=== PATIENT | female | born 1950 | race Caucasian/White ===

== ENCOUNTER 2017-01-10 19:42 | Emergency (ER) | payer MEDICARE, OTHER ==
[2017-01-10 21:06] LABS: Hematocrit 42 % (35-47); Mean Corpuscular HGB Conc 33 g/dl (31-36); Mean Corpuscular Hemoglobin 30 pg (27-31); Mean Corpuscular Volume 91 fL (80-97); Mean Platelet Volume 9 um3 (7.4-10.4); Red Blood Count 4.63 10^6/ul (4.0-5.4); Red Cell Distribution Width 13 % (10.5-15); White Blood Count 6.8 10^3/ul (3.5-10.8)
[2017-01-10 21:17] LABS: Albumin 4.1 g/dL (3.2-5.2); BUN/Creatinine Ratio 23.9 (8-20); Calcium 9.8 mg/dL (8.6-10.3); EGFR African American 82.2 (>60); EGFR Non-African American 63.9 (>60); Globulin 2.9 g/dL (2-4); Total Bilirubin 0.8 mg/dL (0.2-1.0)
[2017-01-10 21:42] LABS: Urine Bilirubin Negative (Negative); Urine Glucose Negative (Negative); Urine Nitrite Negative (Negative)
--- NOTE | 2017-01-10 21:43 | ED ---
David Romo Anna, scribed for Dilan Dotson MD on 01/10/17 at 2028 . Complex/Multi-Sys Presentation - HPI Summary HPI Summary: Patient is a 66 y/o female coming to [facility] presenting with pain that began this evening. Her nurses reported the patient had been expressing that something hurt and had been crying, which is not baseline for her. She was not able to express what was hurting. They called her PCP, Dr. Vargas, who recommended the patient came to the ED. Her BP was 131/100. Upon arrival at the ED, she is at her baseline, according to her brother. At dinner today, she was teary-eyed, crying, and did not finish her dinner. She has not been constipated, and she takes a laxative normally. LEVEL 5 CAVEAT UNABLE TO OBTAIN FULL HISTORY DUE TO HISTORY OF DEMENTIA. - History Of Current Complaint Chief Complaint: EDGeneral Time Seen by Provider: 01/10/17 20:19 Hx Obtained From: Family/Director Of Application Development - Accompanied by brother, who brings verbal reports from the patient's nurses at her care facility Hx From Patient Unobtainable Due To: Dementia - Allergies/Home Medications Allergies/Adverse Reactions: Allergies Allergy/AdvReac Type Severity Reaction Status Date / Time Escitalopram [From Lexapro] Allergy unk Verified 12/15/15 14:58 Memantine [From Namenda] Allergy unk Verified 12/15/15 14:58 Rivastigmine [From Exelon] Allergy unk Verified 12/15/15 14:58 Sulfa Antibiotics Allergy unk Verified 12/15/15 14:58 leaf mold Allergy Unknown Uncoded 12/15/15 14:58 Reaction Details PMH/Surg Hx/FS Hx/Imm Hx Cardiovascular History: Reports: Hx Hypercholesterolemia Respiratory History: Reports: Hx Asthma GI History: Reports: Other GI Disorders - colonic polyps History: Reports: Other Problems/Disorders - ureteral diverticulum Musculoskeletal History: Reports: Hx Osteoporosis, Other Musculoskeletal History - tremor Sensory History: Reports: Hx Glaucoma, Hx Deafness - right ear, stapedectomy x2 , Other Sensory Impairments - episodic diplopia Opthamlomology History: Reports: Hx Glaucoma, Other Sensory Impairments - episodic diplopia Neurological History: Reports: Hx Dementia, Other Neuro Impairments/Disorders - history of head trauma Psychiatric History: Reports: Hx Anxiety, Hx Depression - Cancer History Hx Chemotherapy: No Hx Radiation Therapy: No - Surgical History Surgery Procedure, Year, and Place: stapedectomy right ear x2 with associated hearing loss Infectious Disease History: No Infectious Disease History: Denies: Traveled Outside the [place] in Last 30 Days - Family History Known Family History: Positive: Other - hypercholesterolemia - Social History [facility]: [facility] Alcohol Use: None Hx Substance Use: No Substance Use Type: Reports: None Smoking Status (MU): Unknown if Ever Smoked Review of Systems - ROS Summary Review of Systems Summary: LEVEL 5 CAVEAT UNABLE TO OBTAIN FULL HISTORY DUE TO HISTORY OF DEMENTIA Positive: Myalgia - unspecified, resolved Psychological: Other - crying, resolved All Other Systems Reviewed And Are Negative: No Physical Exam Triage Information Reviewed: Yes Vital Signs On Initial Exam: Initial Vitals Temp Pulse Resp BP Pulse Ox 98.3 F 80 16 153/87 97 01/10/17 20:01 01/10/17 20:01 01/10/17 20:01 01/10/17 20:01 01/10/17 20:01 Vital Signs Reviewed: Yes Completion Of Physical Exam Limited Due To: Dementia Appearance: Positive: No Pain Distress, Thin Skin: Positive: Warm Eyes: Positive: RUBY ENT: Positive: Hearing grossly normal Neck: Positive: Supple Respiratory/Lung Sounds: Positive: Breath Sounds Present Cardiovascular: Positive: RRR Abdomen Description: Positive: Nontender, Soft Bowel Sounds: Positive: Present Musculoskeletal: Positive: Strength/ROM Intact Diagnostics - Vital Signs Vital Signs Temp Pulse Resp BP Pulse Ox 01/10/17 20:01 98.3 F 80 16 153/87 97 - Laboratory Lab Results: Lab Results 01/10/17 01/10/17 01/10/17 Range/Units 20:24 20:40 21:34 WBC 6.8 (3.5-10.8) 10^3/ul RBC 4.63 (4.0-5.4) 10^6/ul Hgb 14.0 (12.0-16.0) g/dl Hct 42 (35-47) % MCV 91 (80-97) fL MCH 30 (27-31) pg MCHC 33 (31-36) g/dl RDW 13 (10.5-15) % Plt Count 232 (150-450) 10^3/ul MPV 9 (7.4-10.4) um3 Neut % (Auto) 45.8 (38-83) % Lymph % (Auto) 37.2 (25-47) % [place] % (Auto) 11.8 H (1-9) % Eos % (Auto) 4.3 (0-6) % Baso % (Auto) 0.9 (0-2) % Absolute Neuts (auto) 3.1 (1.5-7.7) 10^3/ul Absolute Lymphs (auto) 2.5 (1.0-4.8) 10^3/ul Absolute Monos (auto) 0.8 (0-0.8) 10^3/ul Absolute Eos (auto) 0.3 (0-0.6) 10^3/ul Absolute Basos (auto) 0.1 (0-0.2) 10^3/ul Absolute Nucleated RBC 0.01 10^3/ul Nucleated RBC % 0.1 Sodium 133 (133-145) mmol/L Potassium 4.0 (3.5-5.0) mmol/L Chloride 103 (101-111) mmol/L Carbon Dioxide 24 (22-32) mmol/L Anion Gap 6 (2-11) mmol/L BUN 21 (6-24) mg/dL Creatinine 0.88 (0.51-0.95) mg/dL Est GFR ( Amer) 82.2 (>60) Est GFR (Non-Af Amer) 63.9 (>60) BUN/Creatinine Ratio 23.9 H (8-20) Glucose 108 H (70-100) mg/dL Calcium 9.8 (8.6-10.3) mg/dL Total Bilirubin 0.80 (0.2-1.0) mg/dL AST 14 (13-39) U/L ALT 17 (7-52) U/L Alkaline Phosphatase 42 (34-104) U/L Total Protein 7.0 (6.4-8.9) g/dL Albumin 4.1 (3.2-5.2) g/dL Globulin 2.9 (2-4) g/dL Albumin/Globulin Ratio 1.4 (1-3) Urine Color Yellow Urine Appearance Clear Urine pH 5.0 (5-9) Ur Specific [place] 1.027 (1.010-1.030) Urine Protein Negative (Negative) Urine Ketones Negative (Negative) Urine Blood Negative (Negative) Urine Nitrate Negative (Negative) Urine Bilirubin Negative (Negative) Urine Urobilinogen Negative (Negative) Ur Leukocyte Esterase Negative (Negative) Urine Glucose Negative (Negative) Urine Ascorbic Acid * H (Negative) Result Diagrams: 01/10/17 20:40 01/10/17 20:24 Lab Statement: Any lab studies that have been ordered have been reviewed, and results considered in the medical decision making process. Re-Evaluation - Re-Evaluation First Eval Re-Evaluation Time: 21:45 Change: Improved - Patient has not cried or expressed pain since arrival in ED. She is at her baseline, per her brother. Discussed results and plan of care. Patient's brother is agreeable. Complex Multi-Symp Course/Dx Assessment/Plan: Patient is a 66 y/o female coming to [facility] presenting with pain that began this evening. Her nurses reported the patient had been expressing that something hurt and had been crying, which is not baseline for her. She was not able to express what was hurting. They called her PCP, Dr. Vargas, who recommended the patient came to the ED. Labs reveal a BUN/ Creatinine ratio of 23.9 but are otherwise unremarkable. UA is unremarkable. She will be discharged home with follow-up from her PCP. - Diagnoses Provider Diagnoses: pain, resolved Discharge - Discharge Plan Condition: Stable Disposition: HOME Referrals: Temi Vargas MD [Primary Care Provider] - Additional Instructions: Follow up with primary care physician within 48 hours. Return to the emergency department for changing or worsening symptoms. The documentation as recorded by the David nunn Anna accurately reflects the service I personally performed and the decisions made by , Dilan Dotson MD.
[2017-01-10 21:55] VITALS: BP 106/87
== END 2017-01-10 21:58 | disposition home or self-care (01) ==
LOC: ED 19:42
DX: R52 Pain, unspecified (principal); F03.90 Unspecified dementia, unspecified severity, without behavioral disturbance, psychotic disturbance, mood disturbance, and anxiety
CPT/HCPCS: 36415; 80053; 81003; 85025; 99282

== ENCOUNTER 2017-06-09 12:54 | Inpatient (IN) | payer MEDICARE, OTHER ==
[2017-06-09 13:37] LABS: Urine Bacteria 3+ (Absent); Urine Bilirubin Negative (Negative); Urine Glucose Negative (Negative); Urine Nitrite Positive (Negative)
--- NOTE | 2017-06-09 13:39 | RAD ---
Indication: Shortness of breath, confusion. Single frontal view of the chest performed at 1324 hours was reviewed. Comparison is made with previous exam dated April 09, 2012. No mediastinal shift is noted. Heart is of normal size and configuration. Lung marshall appear clear. IMPRESSION: NO ACTIVE CARDIOPULMONARY DISEASE IS NOTED.
[2017-06-09 13:45] LABS: Hematocrit 42 % (35-47); Hemoglobin 13.8 g/dl (12.0-16.0); Mean Corpuscular HGB Conc 33 g/dl (31-36); Mean Corpuscular Hemoglobin 31 pg (27-31); Mean Corpuscular Volume 93 fL (80-97); Mean Platelet Volume 9 um3 (7.4-10.4); Red Blood Count 4.46 10^6/ul (4.0-5.4); Red Cell Distribution Width 13 % (10.5-15); White Blood Count 5.8 10^3/ul (3.5-10.8)
--- NOTE | 2017-06-09 13:57 | RAD ---
Indication: Confusion. CT of the brain was performed without IV contrast. Ventricular structures are midline. No midline shift is noted. There is central and cortical atrophy noted. There is no evidence of intracranial mass or hemorrhage. No other high or low density lesions are identified. Mastoid air cells and paranasal sinuses are otherwise unremarkable. IMPRESSION: No intracranial mass or hemorrhage is noted.
[2017-06-09 14:08] LABS: Albumin 4.1 g/dL (3.2-5.2); BUN/Creatinine Ratio 22.7 (8-20); Calcium 9.6 mg/dL (8.6-10.3); EGFR African American 98.8 (>60); EGFR Non-African American 76.8 (>60); Globulin 2.8 g/dL (2-4); Magnesium 2.2 mg/dL (1.9-2.7); Potassium 4.4 mmol/L (3.5-5.0); Total Bilirubin 1.2 mg/dL (0.2-1.0); Total Protein 6.9 g/dL (6.4-8.9)
[2017-06-09] MEDS ORDERED: cefTRIAXone(*) 1 GM in NS 0.9% 50 ML* 50 ML IVPB ONE (14:22)
--- NOTE | 2017-06-09 14:25 | ED ---
Be Romo Benjamin, scribed for Rosa Isela Varma MD on 06/09/17 at 1316 . Complex/Multi-Sys Presentation - HPI Summary HPI Summary: 66yo female c/o halfway sent by Dr. Vargas, her PCP to rule out any actue medical problems. Per her video game repair technician nurse, pt has been shaky, pale, and has a rigid upper body. Pt fell twice, once this morning and once last night. LEVEL 5 CAVEAT - Pt is aphasic. - History Of Current Complaint Chief Complaint: EDGeneral Time Seen by Provider: 06/09/17 12:59 Hx Obtained From: Family/Jewel Bearing Grinder Onset/Duration: Sudden Onset, Lasting Hours, Still Present Timing: Constant Severity Currently: Mild Severity Initially: Mild Associated Signs And Symptoms: Positive: Weakness, Other - shaky, pale, rigid body - Allergies/Home Medications Allergies/Adverse Reactions: Allergies Allergy/AdvReac Type Severity Reaction Status Date / Time Escitalopram [From Lexapro] Allergy unk Verified 12/15/15 14:58 Memantine [From Namenda] Allergy unk Verified 12/15/15 14:58 Rivastigmine [From Exelon] Allergy unk Verified 12/15/15 14:58 Sulfa Antibiotics Allergy unk Verified 12/15/15 14:58 leaf mold Allergy Unknown Uncoded 12/15/15 14:58 Reaction Details Home Medications: Home Medications Acetaminophen TAB* [Tylenol TAB*] 650 mg PO Q4H PRN 06/09/17 [History Confirmed 06/09/17] Fexofenadine (NF) [Malia 180 (NF)] 180 mg PO BEDTIME 06/09/17 [History Confirmed 06/09/17] Ondansetron ODT TAB* [Zofran 4 MG Odt TAB*] 4 mg PO Q8H PRN 06/09/17 [History Confirmed 06/09/17] PARoxetine HCL TAB* [Paxil TAB*] 20 mg PO BEDTIME 06/09/17 [History Confirmed ] Polyethylene Glycol 3350* [Miralax*] 17 gm PO DAILY 06/09/17 [History Confirmed 06/09/17] guaiFENesin LIQ* [Robitussin*] 10 ml PO Q4H PRN 06/09/17 [History Confirmed 12/25] PMH/Surg Hx/FS Hx/Imm Hx Cardiovascular History: Reports: Hx Hypercholesterolemia Respiratory History: Reports: Hx Asthma GI History: Reports: Other GI Disorders - colonic polyps History: Reports: Other Problems/Disorders - ureteral diverticulum Musculoskeletal History: Reports: Hx Osteoporosis, Other Musculoskeletal History - tremor Sensory History: Reports: Hx Glaucoma, Hx Deafness - right ear, stapedectomy x2 , Other Sensory Impairments - episodic diplopia Opthamlomology History: Reports: Hx Glaucoma, Other Sensory Impairments - episodic diplopia Neurological History: Reports: Hx Dementia, Other Neuro Impairments/Disorders - history of head trauma; Aphasia Psychiatric History: Reports: Hx Anxiety, Hx Depression - Cancer History Hx Chemotherapy: No Hx Radiation Therapy: No - Surgical History Surgery Procedure, Year, and Place: stapedectomy right ear x2 with associated hearing loss Infectious Disease History: No Infectious Disease History: Denies: Traveled Outside the [place] in Last 30 Days - Family History Known Family History: Positive: Other - hypercholesterolemia - Social History Occupation: Disabled Lives: At [facility] Alcohol Use: None Hx Substance Use: No Substance Use Type: Reports: None Smoking Status (MU): Unknown if Ever Smoked Review of Systems - ROS Summary Review of Systems Summary: LEVEL 5 CAVEAT - Pt is aphasic. Positive: Other - shaking Positive: Other - pale All Other Systems Reviewed And Are Negative: No Physical Exam Triage Information Reviewed: Yes Vital Signs On Initial Exam: Initial Vitals Temp Pulse Resp BP Pulse Ox 98.6 F 82 20 153/111 98 06/09/17 13:00 06/09/17 13:00 06/09/17 13:00 06/09/17 13:00 06/09/17 13:00 Vital Signs Reviewed: Yes Completion Of Physical Exam Limited Due To: Level 5 - LEVEL 5 CAVEAT - Pt is aphasic. Appearance: Positive: No Pain Distress, Obese. Negative: Well-Appearing - LEVEL 5 CAVEAT - Pt is aphasic. Skin: Positive: Warm, Skin Color Reflects Adequate Perfusion, Dry Head/Face: Positive: Normal Head/Face Inspection Eyes: Positive: EOMI, RUBY ENT: Positive: Normal ENT inspection Neck: Positive: Supple, Nontender Respiratory/Lung Sounds: Positive: Clear to Auscultation, Breath Sounds Present Cardiovascular: Positive: RRR Abdomen Description: Positive: Soft Bowel Sounds: Positive: Present Musculoskeletal: Positive: Other - LEVEL 5 CAVEAT - Pt is aphasic. Neurological: Positive: Other - LEVEL 5 CAVEAT - Pt is aphasic. Psychiatric: Positive: Patient Uncooperative for Exam - LEVEL 5 CAVEAT - Pt is aphasic. Diagnostics - Vital Signs Vital Signs Temp Pulse Resp BP Pulse Ox 06/09/17 13:06 78 18 98 06/09/17 13:05 153/111 06/09/17 13:00 98.6 F 82 20 153/111 98 - Laboratory Lab Results: Lab Results 06/09/17 06/09/17 06/09/17 Range/Units 13:15 13:30 13:30 WBC 5.8 (3.5-10.8) 10^3/ul RBC 4.46 (4.0-5.4) 10^6/ul Hgb 13.8 (12.0-16.0) g/dl Hct 42 (35-47) % MCV 93 (80-97) fL MCH 31 (27-31) pg MCHC 33 (31-36) g/dl RDW 13 (10.5-15) % Plt Count 243 (150-450) 10^3/ul MPV 9 (7.4-10.4) um3 Neut % (Auto) 45.6 (38-83) % Lymph % (Auto) 37.1 (25-47) % [place] % (Auto) 13.8 H (1-9) % Eos % (Auto) 2.2 (0-6) % Baso % (Auto) 1.3 (0-2) % Absolute Neuts (auto) 2.7 (1.5-7.7) 10^3/ul Absolute Lymphs (auto) 2.2 (1.0-4.8) 10^3/ul Absolute Monos (auto) 0.8 (0-0.8) 10^3/ul Absolute Eos (auto) 0.1 (0-0.6) 10^3/ul Absolute Basos (auto) 0.1 (0-0.2) 10^3/ul Absolute Nucleated RBC 0 10^3/ul Nucleated RBC % 0.1 INR (Anticoag Therapy) (0.89-1.11) Sodium 138 (133-145) mmol/L Potassium 4.4 (3.5-5.0) mmol/L Chloride 106 (101-111) mmol/L Carbon Dioxide 27 (22-32) mmol/L Anion Gap 5 (2-11) mmol/L BUN 17 (6-24) mg/dL Creatinine 0.75 (0.51-0.95) mg/dL Est GFR ( Amer) 98.8 (>60) Est GFR (Non-Af Amer) 76.8 (>60) BUN/Creatinine Ratio 22.7 H (8-20) Glucose 94 (70-100) mg/dL Lactic Acid (0.5-2.0) mmol/L Calcium 9.6 (8.6-10.3) mg/dL Magnesium 2.2 (1.9-2.7) mg/dL Total Bilirubin 1.20 H (0.2-1.0) mg/dL AST 19 (13-39) U/L ALT 19 (7-52) U/L Alkaline Phosphatase 44 (34-104) U/L Troponin I 0.00 (<0.04) ng/mL Total Protein 6.9 (6.4-8.9) g/dL Albumin 4.1 (3.2-5.2) g/dL Globulin 2.8 (2-4) g/dL Albumin/Globulin Ratio 1.5 (1-3) Urine Color Yellow Urine Appearance Cloudy Urine pH 6.0 (5-9) Ur Specific [place] 1.019 (1.010-1.030) Urine Protein Negative (Negative) Urine Ketones Negative (Negative) Urine Blood Negative (Negative) Urine Nitrate Positive H (Negative) Urine Bilirubin Negative (Negative) Urine Urobilinogen Negative (Negative) Ur Leukocyte Esterase 3+ H (Negative) Urine WBC (Auto) 3+(>20/hpf) H (Absent) Urine RBC (Auto) 2+(6-10/hpf) H (Absent) Ur Squamous Epith Cells Present H (Absent) Urine Bacteria 3+ H (Absent) Urine Glucose Negative (Negative) Urine Ascorbic Acid * H (Negative) 06/09/17 06/09/17 Range/Units 13:30 13:30 WBC (3.5-10.8) 10^3/ul RBC (4.0-5.4) 10^6/ul Hgb (12.0-16.0) g/dl Hct (35-47) % MCV (80-97) fL MCH (27-31) pg MCHC (31-36) g/dl RDW (10.5-15) % Plt Count (150-450) 10^3/ul MPV (7.4-10.4) um3 Neut % (Auto) (38-83) % Lymph % (Auto) (25-47) % [place] % (Auto) (1-9) % Eos % (Auto) (0-6) % Baso % (Auto) (0-2) % Absolute Neuts (auto) (1.5-7.7) 10^3/ul Absolute Lymphs (auto) (1.0-4.8) 10^3/ul Absolute Monos (auto) (0-0.8) 10^3/ul Absolute Eos (auto) (0-0.6) 10^3/ul Absolute Basos (auto) (0-0.2) 10^3/ul Absolute Nucleated RBC 10^3/ul Nucleated RBC % INR (Anticoag Therapy) 0.89 (0.89-1.11) Sodium (133-145) mmol/L Potassium (3.5-5.0) mmol/L Chloride (101-111) mmol/L Carbon Dioxide (22-32) mmol/L Anion Gap (2-11) mmol/L BUN (6-24) mg/dL Creatinine (0.51-0.95) mg/dL Est GFR ( Amer) (>60) Est GFR (Non-Af Amer) (>60) BUN/Creatinine Ratio (8-20) Glucose (70-100) mg/dL Lactic Acid 1.3 (0.5-2.0) mmol/L Calcium (8.6-10.3) mg/dL Magnesium (1.9-2.7) mg/dL Total Bilirubin (0.2-1.0) mg/dL AST (13-39) U/L ALT (7-52) U/L Alkaline Phosphatase (34-104) U/L Troponin I (<0.04) ng/mL Total Protein (6.4-8.9) g/dL Albumin (3.2-5.2) g/dL Globulin (2-4) g/dL Albumin/Globulin Ratio (1-3) Urine Color Urine Appearance Urine pH (5-9) Ur Specific [place] (1.010-1.030) Urine Protein (Negative) Urine Ketones (Negative) Urine Blood (Negative) Urine Nitrate (Negative) Urine Bilirubin (Negative) Urine Urobilinogen (Negative) Ur Leukocyte Esterase (Negative) Urine WBC (Auto) (Absent) Urine RBC (Auto) (Absent) Ur Squamous Epith Cells (Absent) Urine Bacteria (Absent) Urine Glucose (Negative) Urine Ascorbic Acid (Negative) Result Diagrams: 06/09/17 13:30 06/09/17 13:30 Lab Statement: Any lab studies that have been ordered have been reviewed, and results considered in the medical decision making process. - Radiology CXR Xray Interpretation: No Acute Changes Radiology Interpretation Completed By: Radiologist - CT CT Brain WO CT Interpretation: No Acute Changes CT Interpretation Completed By: Radiologist - EKG 1305. Cardiac Rate: NL - 77bpm EKG Rhythm: Sinus Rhythm EKG Interpretation: Anterior Qs, porr R wave progressions. EKG Comparison: No Significant Change - compared to 12/15/15. Complex Multi-Symp Course/Dx Course Of Treatment: Reviewed pt's medications list and allergies. Blood pressure noted. 66 yo female with altered mental status changes with uti pt usually ambulates is now unable to get up case to be discussed with Dr. Cooley for admission - Diagnoses Provider Diagnoses: UTI (urinary tract infection) Discharge - Discharge Plan Condition: Stable Disposition: ADMITTED TO [facility] Referrals: Temi Vargas MD [Primary Care Provider] - The documentation as recorded by the Be nunn Benjamin accurately reflects the service I personally performed and the decisions made by me, Rosa Isela Varma MD.
[2017-06-09] MEDS ORDERED: diPHENhydraMINE IV* 50 MG/ML 1 ml VIAL (BENADRYL) IV ONE (15:10)
[2017-06-09] MEDS ORDERED: Ondansetron INJ* 2 MG/ML VIAL IV PRN (15:40)
[2017-06-09] MEDS ORDERED: Acetaminophen TAB* 325 MG PO PRN (15:42)
[2017-06-09] MEDS: NS 0.9% 1000 ML* 1,000 ML IV SCH (17:07)
[2017-06-09] MEDS: Heparin VIAL(*) 5000 UNITS/ML VIAL (FIVE THOUSAND) SUBCUT SCH (20:41)
[2017-06-09] MEDS: PARoxetine HCL TAB* 20 MG PO SCH (20:42)
[2017-06-09] MEDS: OLOPATADINE 0.1% BOTH EYES SCH (22:03)
[2017-06-09] MEDS: Latanoprost 0.005%* 2.5 ml BTL BOTH EYES SCH (22:10)
--- NOTE | 2017-06-10 00:24 | HP ---
CC: Dr. Temi Vargas * HISTORY AND PHYSICAL: DATE OF ADMISSION: 06/09/17 PRIMARY CARE PROVIDER: Dr. Temi Vargas. CHIEF COMPLAINT: Lethargy. HISTORY OF PRESENT ILLNESS: Ms. Licea is a 66-year-old female who has a history of advanced early dementia, hyperlipidemia, asthma, depression, anxiety, tremors , and glaucoma who was brought to the emergency room from [place] due to increased lethargy. According to the aide at the patient's bedside, the patient was noted to be sleeping much more than usual. She was noted to be pale. Because of this, she was sent to the emergency room for evaluation. The patient herself is essentially nonverbal and unable to answer any questions. PAST MEDICAL HISTORY: 1. Advanced early dementia. 2. Hyperlipidemia. 3. Asthma. 4. Rosacea. 5. Glaucoma. 6. Depression. 7. Anxiety. 8. History of colonic polyps. 9. Goiter. 10. Tremor. 11. Episodic diplopia. 12. Urethral diverticulum. 13. History of ulcerative colitis. MEDICATIONS: 1. Guaifenesin 10 mL p.o. q.4 hours p.r.n. cough. 2. MiraLAX 17 g p.o. daily. 3. Paxil 20 mg p.o. q.h.s. 4. Zofran ODT 4 mg p.o. q.8 hours p.r.n. nausea. 5. Patanol 1 drop to both eyes b.i.d. 6. Xalatan 1 drops to both eyes at bedtime. 7. Fexofenadine 180 mg p.o. q.h.s. 8. Alendronate sodium 70 mg p.o. weekly. 9. Tylenol 650 mg p.o. q.4 hours p.r.n. pain. ALLERGIES: LEXAPRO, NAMENDA, RIVASTIGMINE, SULFA. FAMILY HISTORY: Unobtainable from the patient due to her being nonverbal. SOCIAL HISTORY: The patient lives at [place]. Her brother, Mekhi, is her healthcare proxy. REVIEW OF SYSTEMS: Unobtainable from the patient due to her being nonverbal. PHYSICAL EXAMINATION GENERAL: The patient is a well developed, middle-aged female, lying in bed, making whining sounds that is reportedly the patient singing, appearing to be in no acute distress. VITAL SIGNS: Blood pressure 148/132 (this does not appear to be an accurate blood pressure), pulse 82, respirations 30, temperature 98.6, O2 sat 96% on room air. HEENT: Pupils are equal. They are round. They react to light. Extraocular muscles are intact. Oropharynx is clear. Oral mucosa is moist. There is no submandibular, cervical or subclavicular adenopathy. Thyroid is not enlarged. No thyroid nodules are noted. PULMONARY: Lungs are clear to auscultation anteriorly. CARDIAC: Normal S1 and S2. Regular rate and rhythm. I do not appreciate any murmurs. There is trace bilateral lower extremity edema. ABDOMEN: Bowel sounds are present. Abdomen is soft, nontender, and nondistended. MUSCULOSKELETAL: There is no cyanosis or clubbing of the digits. SKIN: Warm and dry. I do not appreciate any rashes. NEUROLOGIC: Cranial nerves II through XII are appear to be grossly intact. The patient does not cooperate with the rest of the physical exam. PSYCH: The patient is alert. Again, she makes what sound to be whining sounds , but per the aide is patient singing. LABORATORY DATA: WBC 5.8, hemoglobin 13.8, hematocrit 42, and platelets 243. INR 0.89. Sodium 138, potassium 4.4, chloride 106, CO2 27, BUN 17, creatinine 0.75, glucose 94, lactic acid 1.3, calcium 9.6, magnesium 2.2, bilirubin 1.2, AST 19, ALT 19, alkaline phosphatase 44. Troponin 0, albumin 4.1. Urinalysis reveals cloudy urine with the specific gravity of 1.019. Positive for nitrites , 3+ leukocytes esterase, 3+ wbc's, 3+ bacteria. EKG reveals normal sinus rhythm without any acute ST-T wave abnormalities. CT brain reveals no acute intracranial mass or hemorrhage. Chest x-ray, no active cardiopulmonary disease. ASSESSMENT AND PLAN: Ms. Licea is a 66-year-old female with a history of advanced early onset dementia who was admitted to [facility] [place] for presumed urinary tract infection and associated altered mental status. 1. Altered mental status secondary to urinary tract infection. The patient's encephalopathy is almost certainly related to her infection. She is more lethargic than normal per the aid at the bedside. However, at the time of my evaluation, she was noted to be alert. I suspect the patient will need just 1 day of IV antibiotics and can likely go back to [place] tomorrow. The patient has a past history of urinary tract infections. She has previously grown group B strep, E. coli, Proteus and enterococcus. For now, the patient will be started on ceftriaxone 1 g IV daily. We will need to monitor her urine culture to ensure that she is on appropriate antibiotic therapy. The patient will receive normal saline overnight. 2. Anxiety/depression. The patient will be maintained on her usual dose of Paxil. 3. DVT prophylaxis: According to the Adult Thrombosis Prophylaxis Risk Factor Assessment Guide, the patient has a total risk factor score of 4 making her at high risk. She will be placed on heparin 5000 units subcutaneous q.8 hours. 4. Code status is full. TIME SPENT: 45 minutes were spent admitting this patient. [id number]/CPS #: [id number] VICKI
[2017-06-10] MEDS: CMCS: Melatonin (NF) 3 MG TAB PO PRN ×2 (01:02→22:58)
[2017-06-10] MEDS: Heparin VIAL(*) 5000 UNITS/ML VIAL (FIVE THOUSAND) SUBCUT SCH ×3 (05:55→22:07)
[2017-06-10] MEDS: NS 0.9% 1000 ML* 1,000 ML IV SCH (06:15)
[2017-06-10] MEDS: Polyethylene Glycol 3350* 17 GM PACKET PO SCH (08:14)
[2017-06-10] MEDS: OLOPATADINE 0.1% BOTH EYES SCH ×2 (08:14→22:58)
[2017-06-10] MEDS: cefTRIAXone VIAL(*) 1,000 MG in NS 0.9% 50 ML* 50 ML IVPB SCH (11:19)
[2017-06-10 12:22] LABS: C Reactive Protein 5.62 mg/L (< 5.00)
[2017-06-10] MEDS: PARoxetine HCL TAB* 20 MG PO SCH (22:07)
[2017-06-10] MEDS: Latanoprost 0.005%* 2.5 ml BTL BOTH EYES SCH (22:07)
[2017-06-11 05:45] LABS: Hematocrit 40 % (35-47); Hemoglobin 13.3 g/dl (12.0-16.0); Mean Corpuscular HGB Conc 33 g/dl (31-36); Mean Corpuscular Hemoglobin 31 pg (27-31); Mean Corpuscular Volume 93 fL (80-97); Mean Platelet Volume 9 um3 (7.4-10.4); Red Blood Count 4.32 10^6/ul (4.0-5.4); Red Cell Distribution Width 13 % (10.5-15)
[2017-06-11 06:04] LABS: Albumin 3.8 g/dL (3.2-5.2); BUN/Creatinine Ratio 15.6 (8-20); C Reactive Protein 5.51 mg/L (< 5.00); Calcium 9.6 mg/dL (8.6-10.3); EGFR African American 95.9 (>60); EGFR Non-African American 74.5 (>60); Globulin 2.8 g/dL (2-4); Potassium 4.2 mmol/L (3.5-5.0); Total Bilirubin 0.9 mg/dL (0.2-1.0); Total Protein 6.6 g/dL (6.4-8.9)
[2017-06-11] MEDS: Heparin VIAL(*) 5000 UNITS/ML VIAL (FIVE THOUSAND) SUBCUT SCH ×3 (06:08→21:23)
[2017-06-11] MEDS: OLOPATADINE 0.1% BOTH EYES SCH (09:22)
[2017-06-11] MEDS: Polyethylene Glycol 3350* 17 GM PACKET PO SCH (09:23)
[2017-06-11] MEDS: cefTRIAXone VIAL(*) 1,000 MG in NS 0.9% 50 ML* 50 ML IVPB SCH (12:29)
[2017-06-11] MEDS: Latanoprost 0.005%* 2.5 ml BTL BOTH EYES SCH (21:25)
[2017-06-11] MEDS: PARoxetine HCL TAB* 20 MG PO SCH (21:25)
[2017-06-12] MEDS: OLOPATADINE 0.1% BOTH EYES SCH ×3 (00:24→22:07)
[2017-06-12] MEDS: CMCS: Melatonin (NF) 3 MG TAB PO PRN ×2 (02:18→22:07)
[2017-06-12] MEDS: Heparin VIAL(*) 5000 UNITS/ML VIAL (FIVE THOUSAND) SUBCUT SCH ×3 (05:53→22:07)
[2017-06-12] MEDS: Polyethylene Glycol 3350* 17 GM PACKET PO SCH (10:54)
[2017-06-12] MEDS: Nitrofurantoin Macrocrystals* 100 MG CAP PO SCH ×2 (10:55→22:06)
[2017-06-12] MEDS: PARoxetine HCL TAB* 20 MG PO SCH (22:06)
[2017-06-12] MEDS: Latanoprost 0.005%* 2.5 ml BTL BOTH EYES SCH (22:07)
[2017-06-13] MEDS: Heparin VIAL(*) 5000 UNITS/ML VIAL (FIVE THOUSAND) SUBCUT SCH ×3 (05:25→21:27)
--- NOTE | 2017-06-13 10:13 | PN ---
Subjective - Subjective Reason for Note: Progress Note History: I reviewed Sarah Licea's presentation in the H and P provided by Yanet Cooley MD, Dr. Temi Vargas has signed her out and I reviewed the EHR and written progress notes. She has an E. coli UTI - this is covered by nitrofurantoin. It is clear her dementia is progressing and she is currently having detention placement assessed. She is unable to provide any history. She shakes, and vocalizes in an anxious fashion, but is not able to communicate. She is being fed by an aide. Active Problems: Active Problems E. coli UTI (Acute) N39.0, B96.20 Anxiety (Chronic) F41.9 Asthma (Chronic) J45.909 Dementia (Chronic) F03.90 Depression (Chronic) F32.9 Glaucoma (Chronic) H40.9 Goiter (Chronic) E04.9 History of ulcerative colitis (Chronic) Z87.19 Tremor (Chronic) R25.1 Current Medications: Current Medications Acetaminophen (Tylenol Tab*) 650 mg PO Q4H PRN PRN Reason: FEVER/PAIN Heparin Sodium (Porcine) (Heparin Vial(*)) 5,000 units SUBCUT Q8HR ALFIE Last Admin: 06/13/17 05:25 Dose: 5,000 units Latanoprost (Xalatan 0.005%*) 1 drop BOTH EYES BEDTIME ALFIE Last Admin: 06/12/17 22:07 Dose: 1 drop Melatonin (Melatonin (Nf)) 3 mg PO BEDTIME PRN; Protocol PRN Reason: Sleep Last Admin: 06/12/17 22:07 Dose: 3 mg Nitrofurantoin Macrocrystals (Macrodantin*) 100 mg PO BID ALFIE Last Admin: 06/12/17 22:06 Dose: 100 mg Olopatadine HCl (Patanol 0.1% Ophth (Nf)) 1 drop BOTH EYES BID ALFIE PRN Reason: Protocol Last Admin: 06/12/17 22:07 Dose: Not Given Ondansetron HCl (Zofran Inj*) 4 mg IV Q6H PRN PRN Reason: NAUSEA Paroxetine HCl (Paxil Tab*) 20 mg PO BEDTIME ALFIE Last Admin: 06/12/17 22:06 Dose: 20 mg Polyethylene Glycol/Electrolytes (Miralax*) 17 gm PO DAILY ALFIE Last Admin: 06/12/17 10:54 Dose: 17 gm Home Medications: Home Medications Medication Instructions Recorded Confirmed Type Alendronate Sodium [Fosamax-] 70 mg PO WEEKLY 12/15/15 06/09/17 History Latanoprost 0.005% OPTH (NF) 1 drop BOTH EYES BEDTIME 12/15/15 06/09/17 History [Xalatan 0.005% OPTH*] Olopatadine 0.1% OPHTH (NF) 1 drop BOTH EYES BID 12/15/15 06/09/17 History [Patanol 0.1% OPHTH (NF)] Acetaminophen TAB* [Tylenol TAB*] 650 mg PO Q4H PRN 06/09/17 06/09/17 History Fexofenadine (NF) [Malia 180 180 mg PO BEDTIME 06/09/17 06/09/17 History (NF)] Ondansetron ODT TAB* [Zofran 4 MG 4 mg PO Q8H PRN 06/09/17 06/09/17 History Odt TAB*] PARoxetine HCL TAB* [Paxil TAB*] 20 mg PO BEDTIME 06/09/17 06/09/17 History Polyethylene Glycol 3350* 17 gm PO DAILY 06/09/17 06/09/17 History [Miralax*] guaiFENesin LIQ* [Robitussin*] 10 ml PO Q4H PRN 06/09/17 06/09/17 History Allergies: Allergies Allergy/AdvReac Type Severity Reaction Status Date / Time Escitalopram [From Lexapro] Allergy unk Verified 12/15/15 14:58 Memantine [From Namenda] Allergy unk Verified 12/15/15 14:58 Rivastigmine [From Exelon] Allergy unk Verified 12/15/15 14:58 Sulfa Antibiotics Allergy unk Verified 12/15/15 14:58 leaf mold Allergy Unknown Uncoded 12/15/15 14:58 Reaction Details Objective - Vital Signs Vital Signs: Vital Signs 06/12/17 06/12/17 06/12/17 11:25 11:42 15:40 Temperature Pulse Rate 133 166 Respiratory 18 24 Rate Blood Pressure 175/139 134/74 54/27 (mmHg) O2 Sat by Pulse 93 95 Oximetry 06/12/17 06/12/17 06/12/17 15:54 16:17 16:21 Temperature 98.1 F 97.6 F Pulse Rate 105 Respiratory Rate Blood Pressure 121/95 (mmHg) O2 Sat by Pulse 97 Oximetry 06/12/17 06/12/17 06/12/17 19:49 19:52 20:08 Temperature Pulse Rate 60 254 60 Respiratory 20 Rate Blood Pressure 154/64 (mmHg) O2 Sat by Pulse Oximetry 06/12/17 06/12/17 06/12/17 20:15 20:21 23:38 Temperature 98.1 F 98.6 F Pulse Rate 97 Respiratory 18 18 Rate Blood Pressure 142/82 (mmHg) O2 Sat by Pulse 99 95 Oximetry 06/13/17 05:40 Temperature 98.2 F Pulse Rate 83 Respiratory 20 Rate Blood Pressure 117/92 (mmHg) O2 Sat by Pulse 96 Oximetry - Intake and Output Intake and Output: Intake & Output 06/10/17 06/11/17 06/12/17 06/13/17 11:59 11:59 11:59 11:59 Intake Total 468 300 870 580 Output Total 0 Balance 468 300 870 580 Intake: IV Fluids 418 0 80 ABX - CEFTRIAXONE 0 50 NS (0.9%) 418 30 IVPB 50 ABX - CEFTRIAXONE 50 Oral 300 790 580 Output: Urine 0 Other: Estimated Void Small Medium Medium # Bowel Movements 1 1 1 Estimated Stool Amount Medium Small Small # Voids 1 2 0 ADLs: Meal Record Start: 06/09/17 15: 57 Freq: DAILY@0900,1400,1800 Status: Active Document 06/09/17 18:00 [id number] (Rec: 06/09/17 20:13 [id number] MED-C11) Document 06/10/17 09:00 [id number] (Rec: 06/10/17 10:06 [id number] MED-C11) Document 06/10/17 14:00 [id number] (Rec: 06/10/17 14:23 [id number] MED-C11) Document 06/10/17 18:00 [id number] (Rec: 06/10/17 18:05 [id number] MED-C11) Document 06/11/17 09:00 [id number] (Rec: 06/11/17 09:35 [id number] MED-C11) Document 06/11/17 13:22 [id number] (Rec: 06/11/17 13:23 [id number] MED-C11) Document 06/11/17 18:00 [id number] (Rec: 06/11/17 18:17 [id number] MED-C11) Document 06/12/17 09:00 [id number] (Rec: 06/12/17 15:13 [id number] MED-C11) Document 06/12/17 14:00 [id number] (Rec: 06/12/17 15:15 [id number] MED-C11) Document 06/12/17 18:00 [id number] (Rec: 06/12/17 20:13 [id number] MED-C11) Intake and Output Start: 06/09/17 15: 57 Freq: DAILY@0600,1400,2200 Status: Active Document 06/09/17 22:00 [id number] (Rec: 06/09/17 22:40 [id number] MED-C11) Document 06/10/17 06:00 [id number] (Rec: 06/10/17 06:09 [id number] MED-C26) Document 06/10/17 14:00 [id number] (Rec: 06/10/17 14:24 [id number] MED-C11) Document 06/10/17 20:54 [id number] (Rec: 06/10/17 20:55 [id number] MED-C09) Document 06/11/17 06:00 [id number] (Rec: 06/11/17 06:32 [id number] MED-C26) Document 06/11/17 13:24 [id number] (Rec: 06/11/17 13:24 [id number] MED-C11) Document 06/11/17 21:37 [id number] (Rec: 06/11/17 21:38 [id number] MED-C11) Document 06/12/17 06:00 [id number] (Rec: 06/12/17 06:26 [id number] MEDL-C02) Document 06/12/17 14:00 [id number] (Rec: 06/12/17 15:15 [id number] MED-C11) Document 06/12/17 21:24 [id number] (Rec: 06/12/17 21:27 [id number] MED-C11) Document 06/13/17 06:00 [id number] (Rec: 06/13/17 06:24 [id number] MED-C26) - Physical Exam General Physical Exam Comment: Marked tremor and fearfulness General: No Cyanosis, No Anemia, No Jaundice, No Clubbing Lungs and Chest: Yes: Chest Expansion Full, Chest Expansion Symetrica, Percussion Note Resonant, Vessicular Breath Sounds. No: Crackles, Wheezes Heart Rate and Rhythm: Regular [place] Beat: Non Displaced Additional Cardiovascular: Yes: Normal Heart Sounds, Pedal Edema - trace. No: Heart Murmur Abdominal Exam: Yes: Soft. No: Distention, Abdominal Tenderness Assessment - Problem List Assessment: Patient Problems E. coli UTI (Acute) Anxiety (Chronic) Asthma (Chronic) Dementia (Chronic) Depression (Chronic) Glaucoma (Chronic) Goiter (Chronic) History of ulcerative colitis (Chronic) Tremor (Chronic) Plan: E. coli UTI (Acute) She is afebrile and responding well to the nitrofurantoin Anxiety (Chronic) Dementia (Chronic) Depression (Chronic) Tremor (Chronic) She appears to be anxious and fearful. I note she is taking paroxetine. However, I wonder if additional psychopharmacology would help her with her mental state. I will leave this to Dr. Temi Vargas. I would consider a therapeutic trial of an atypical anti-psychotic. I reviewed the CT scan of her brain. I note she has had a B12 and TSH measured, but no RPR - I will add this. Asthma (Chronic) not exacerbated Glaucoma (Chronic) secondary diagnosis Goiter (Chronic) secondary diagnosis History of ulcerative colitis (Chronic) Phone call to brother Mekhi Lopez - no response.
[2017-06-13] MEDS: Polyethylene Glycol 3350* 17 GM PACKET PO SCH (10:30)
[2017-06-13] MEDS: OLOPATADINE 0.1% BOTH EYES SCH ×2 (10:32→21:29)
[2017-06-13] MEDS: Nitrofurantoin Macrocrystals* 100 MG CAP PO SCH ×2 (10:35→21:27)
[2017-06-13] MEDS: PARoxetine HCL TAB* 20 MG PO SCH (21:27)
[2017-06-13] MEDS: CMCS: Melatonin (NF) 3 MG TAB PO PRN (21:27)
[2017-06-13] MEDS: Latanoprost 0.005%* 2.5 ml BTL BOTH EYES SCH (21:29)
[2017-06-14] MEDS: Heparin VIAL(*) 5000 UNITS/ML VIAL (FIVE THOUSAND) SUBCUT SCH ×3 (06:09→21:22)
[2017-06-14] MEDS: Nitrofurantoin Macrocrystals* 100 MG CAP PO SCH ×2 (08:42→20:11)
[2017-06-14] MEDS: Polyethylene Glycol 3350* 17 GM PACKET PO SCH (08:42)
[2017-06-14] MEDS: OLOPATADINE 0.1% BOTH EYES SCH ×2 (08:43→20:16)
[2017-06-14 10:54] LABS: Syphilis Index < 0.1 Index
[2017-06-14] MEDS: PARoxetine HCL TAB* 20 MG PO SCH (20:12)
[2017-06-14] MEDS: Latanoprost 0.005%* 2.5 ml BTL BOTH EYES SCH (20:18)
[2017-06-14] MEDS: CMCS: Melatonin (NF) 3 MG TAB PO PRN (21:31)
[2017-06-15] MEDS: Heparin VIAL(*) 5000 UNITS/ML VIAL (FIVE THOUSAND) SUBCUT SCH ×3 (05:57→22:33)
[2017-06-15] MEDS: Nitrofurantoin Macrocrystals* 100 MG CAP PO SCH ×2 (08:20→22:33)
[2017-06-15] MEDS: OLOPATADINE 0.1% BOTH EYES SCH ×2 (08:20→22:29)
[2017-06-15] MEDS: Polyethylene Glycol 3350* 17 GM PACKET PO SCH (08:20)
--- NOTE | 2017-06-15 10:06 | TRS ---
DATE OF ADMISSION: 06/09/17 DATE OF TRANSFER: 06/16/17 TRANSFER DIAGNOSES: 1. Urinary tract infection. 2. Dementia. 3. Hyperlipidemia. 4. History of asthma. 5. Glaucoma. 6. History of anxiety and depression. 7. History of colonic polyps. 8. Tremor. 9. History of ulcerative colitis. 10. History of urethral diverticulum. 11. Constipation. 12. Osteoporosis. ALLERGIES: 1. CITALOPRAM. 2. MEMANTINE. 3. RIVASTIGMINE. 4. SULFA. 5. ENVIRONMENTAL ALLERGIES: HISTORY: Sarah Licea is a 66-year-old woman admitted with change in mental status due to a urinary tract infection. Please see the dictated admission note for details of the present illness, past medical history, family history, social and personal history, review of systems and physical examination. LABORATORY DATA: CBC on 06/09/17 - WBC 5.8, H and H 13.8/42, MCV 93, PLT 243K. CBC on 06/11/17 was essentially unchanged. INR normal. Chemistries on - sodium 138, potassium 4.4, chloride 106, CO2 27, BUN/creatinine 17/0.75, glucose 94, rest of comprehensive metabolic panel was normal except for bilirubin slightly elevated at 1.2, repeat at 0.9. C-reactive protein 5.62 on 06/09/17, 5.51 on 06/11/17. Urinalyisis - yellow, cloudy, specific gravity 1.019, pH 6, dipsticks positive for nitrates, leukocyte, esterase. Urine WBCs 3+, RBCs 2+, squamous epithelial cells present, bacteria 3+. Syphilis IGG antibody non-reactive. Urine culture grew out E. coli greater than 100,000 colonies, resistant to Ampicillin, Ciprofloxacin, Levofloxacin, Tetracycline, and Trimethoprim sulfa, sensitive to all other antibiotics tested. IMAGIN. Brain CT showed central and cortical atrophy, no evidence of intracranial mass or hemorrhage. 2. Chest x-ray showed no acute disease. 3. Electrocardiogram showed sinus rhythm, left anterior fascicular block, low voltage, poor precordial R-wave progression, a significant change since 2016 EKG. HOSPITAL COURSE: Patient was admitted with altered mental status due to urinary tract infection. She received IV antibiotics with Ceftriaxone, subsequently transitioned to oral nitrofurantoin. She was maintained on her usual dose of Paxil. She received DVT prophylaxis. She was a full code initially and then after this discussed with her son a MOLST form was completed and DNR was chosen. She gradually improved. Initially, she did not participate with physical therapy, but by 06/14/17 she was walking with physical therapy. She initially received IV fluids which were discontinued when she was eating and drinking well. She initially had a Lara catheter which was discontinued. On 06/10/2017 she had episodes of anxiety which improved with small doses of diazepam 2 mg. The case was discussed with her brother and son, who are her health care proxies (Mekhi Lopez and Fracisco Licea). DISCHARGE MEDICATIONS: At the time of discharge, she's on the following medications: 1. Olopatadine 0.1% one drop both eyes. 2. Paroxetine 20 mg q evening. 3. Latanoprost 0.005% one drop both eyes at bedtime. 4. Fexofenadine 180 mg at bedtime. 5. Fosamax 70 mg weekly. 6. MiraLax 17 grams daily. 7. Acetaminophen 650 q 4 H as needed for pain. 8. Diazepam 2 mg every 4 hours as needed for anxiety. Code status is DNR with MOLST form filled out with son. Physical therapy will be continued at the snf. Diet is regular. [id number]/[facility] #: [id number] MTDD
[2017-06-15] MEDS: Diazepam TAB(*) 2 MG PO PRN ×2 (14:26→19:34)
[2017-06-15] MEDS: Latanoprost 0.005%* 2.5 ml BTL BOTH EYES SCH (22:28)
[2017-06-15] MEDS: CMCS: Melatonin (NF) 3 MG TAB PO PRN (22:33)
[2017-06-15] MEDS: PARoxetine HCL TAB* 20 MG PO SCH (22:33)
[2017-06-16] MEDS: Diazepam TAB(*) 2 MG PO PRN ×2 (05:30→11:02)
[2017-06-16] MEDS: Heparin VIAL(*) 5000 UNITS/ML VIAL (FIVE THOUSAND) SUBCUT SCH ×2 (05:31→14:31)
[2017-06-16] MEDS: Nitrofurantoin Macrocrystals* 100 MG CAP PO SCH (08:52)
[2017-06-16] MEDS: Polyethylene Glycol 3350* 17 GM PACKET PO SCH (08:52)
[2017-06-16] MEDS: OLOPATADINE 0.1% BOTH EYES SCH (08:53)
[2017-06-16 13:00] VITALS: BP 143/71
== END 2017-06-16 13:30 | DRG 689 ==
LOC: ED 12:54 → MED 15:46 → INTOOBSV 15:46 → MED 16:26 → OBSVTOIN 06-10 10:00
PROVIDERS: ADMIT Hospitalist; ATTEND Internal Medicine Geriatric Medicine
DX: N39.0 Urinary tract infection, site not specified (principal); G93.40 Encephalopathy, unspecified; K51.90 Ulcerative colitis, unspecified, without complications; R47.01 Aphasia; F03.90 Unspecified dementia, unspecified severity, without behavioral disturbance, psychotic disturbance, mood disturbance, and anxiety; E78.5 Hyperlipidemia, unspecified; J45.909 Unspecified asthma, uncomplicated; F32.9 Major depressive disorder, single episode, unspecified; F41.9 Anxiety disorder, unspecified; H40.9 Unspecified glaucoma; L71.9 Rosacea, unspecified; E04.9 Nontoxic goiter, unspecified; H53.2 Diplopia; M81.0 Age-related osteoporosis without current pathological fracture; H91.91 Unspecified hearing loss, right ear; B96.20 Unspecified Escherichia coli [E. coli] as the cause of diseases classified elsewhere; R25.1 Tremor, unspecified; K59.00 Constipation, unspecified; Z66 Do not resuscitate; Z86.010 Personal history of colon polyps; Z88.2 Allergy status to sulfonamides; Z88.8 Allergy status to other drugs, medicaments and biological substances; Z87.440 Personal history of urinary (tract) infections; Z91.048 Other nonmedicinal substance allergy status; Z83.42 Family history of familial hypercholesterolemia
CPT/HCPCS: 36415; 70450; 71010; 80053; 81003; 81015; 83605; 83735; 84484; 85025; 85027; 85610; 86140; 86592; 87077; 87086; 87186; 87641; 93005; 99284; A9270-GY; G0378; J0696; J1644

== ENCOUNTER 2019-02-22 20:16 | Emergency (ER) | payer MEDICARE, OTHER ==
--- NOTE | 2019-02-22 20:32 | ED ---
Adult Trauma - HPI Summary HPI Summary: LEVEL 5 CAVEAT: HPI LIMITED DUE TO PT CONDITION, DEMENTIA/NON-VERBAL A 68 y/o M presents to ED brought in by ambulance from [facility] s/p fall today. Per staff via phone: Pt was found on floor in hallway, they heard but did not see her fall; patient sits in the hallway with a "lap blaise" which is a cushion to prevent her from getting up too easily. No LOC. They state she was at baseline during the day. - History of Current Complaint Stated Complaint: FALL PER EMS Time Seen by Provider: 02/22/19 20:21 Hx Obtained From: EMS, Other: - halfway via phone Hx From Patient Unobtainable Due To: Dementia Mechanism of Injury: Fall - from sitting Loss of Consciousness: no loss of consciousness - Additional Pertinent History Primary Care Physician: ANGELIKA - Allergy/Home Medications Allergies/Adverse Reactions: Allergies Allergy/AdvReac Type Severity Reaction Status Date / Time MS Escitalopram Allergy unk Verified 12/15/15 14:58 [From Lexapro] MS Memantine [From Namenda] Allergy unk Verified 12/15/15 14:58 MS Rivastigmine [From Exelon] Allergy unk Verified 12/15/15 14:58 MS Sulfa Antibiotics Allergy unk Verified 12/15/15 14:58 [Sulfa Antibiotics] leaf mold Allergy Unknown Uncoded 12/15/15 14:58 Reaction Details PMH/Surg Hx/FS Hx/Imm Hx Previously Healthy: No Endocrine/Hematology History: Denies: Hx Anemia Cardiovascular History: Reports: Hx Hypercholesterolemia Respiratory History: Reports: Hx Asthma GI History: Reports: Other GI Disorders - colonic polyps Denies: Hx Jaundice History: Reports: Other Problems/Disorders - ureteral diverticulum Musculoskeletal History: Reports: Hx Osteoporosis, Other Musculoskeletal History - tremor Sensory History: Reports: Hx Glaucoma, Hx Deafness - Right ear, Other Sensory Impairments - episodic diplopia Denies: Hx Contacts or Glasses, Hx Hearing Aid Opthamlomology History: Reports: Hx Glaucoma, Other Sensory Impairments - episodic diplopia Denies: Hx Contacts or Glasses Neurological History: Reports: Hx Dementia - advanced early dementia, Other Neuro Impairments/Disorders - Parkinson's, Subdural hematoma Psychiatric History: Reports: Hx Anxiety, Hx Depression - Cancer History Hx Chemotherapy: No Hx Radiation Therapy: No - Surgical History Surgery Procedure, Year, and Place: stapedectomy right ear x2 with associated hearing loss Infectious Disease History: Denies: Traveled Outside the [place] in Last 30 Days - Family History Known Family History: Positive: Other - hypercholesterolemia - Social History Occupation: Retired Lives: [facility] Alcohol Use: None Hx Substance Use: No Substance Use Type: Reports: None Smoking Status (MU): Unknown if Ever Smoked Review of Systems - ROS Summary Review of Systems Summary: LEVEL 5 CAVEAT: ROS LIMITED DUE TO PT CONDITION, DEMENTIA/NON-VERBAL All Other Systems Reviewed And Are Negative: No Physical Exam - Summary Physical Exam Summary: LEVEL 5 CAVEAT: PE LIMITED DUE TO PT CONDITION, DEMENTIA/NON-VERBAL Appearance: Well-appearing, Well-nourished, lying in bed comfortably Skin: Warm, dry, no obvious rash. R forearm abrasion by elbow. Eyes: sclera anicteric, no conjunctival pallor ENT: mucous membranes moist Neck: moving head without obvious discomfort Respiratory: no signs of respiratory distress Cardiovascular: Appears well perfused, pulses are nml Abdomen: deferred Musculoskeletal: Palpated all extremities, no focal tenderness nor deformity, small hematoma on scalp. Neurological: Awake and alert, mentation is normal Psychiatric: affect is normal, does not appear anxious or depressed Triage Information Reviewed: Yes Vital Signs Reviewed: Yes Completion Of Physical Exam Limited Due To: Dementia - Ike Coma Scale Best Eye Response: 4 - Spontaneous Best Motor Response: 6 - Obeys Commands Best Verbal Response: 5 - Oriented Coma Scale Total: 15 Adult Trauma Course/Dx - Course Course Of Treatment: Pt is a 68 y/o non-verbal F with dementia presenting s/p fall today at halfway. Spoke with halfway at 2023 via phone. Limited PE: There is a R forearm abrasion by elbow. Palpated all extremities, no focal tenderness nor deformity; small hematoma on scalp. Pt moving head without obvious discomfort. PT WILL BE SIGNED OUT TO DR. BOWLES AT SHIFT CHANGE PENDING BRAIN CT. - Diagnoses Provider Diagnoses: Fall with no injury Discharge - Sign-Out/Discharge Documenting (check all that apply): Sign-Out Patient Signing out patient TO: John Bowles - pending brain CT Patient Received Moderate/Deep Sedation with Procedure: No - Discharge Plan Condition: Stable Disposition: HOME Patient Education Materials: Fall Prevention for Older Adults (ED) Referrals: Temi Vargas MD [Primary Care Provider] - Additional Instructions: RETURN TO THE EMERGENCY DEPARTMENT FOR CHANGING OR WORSENING SYMPTOMS. FOLLOW UP WITH YOUR PRIMARY CARE PROVIDER WITHIN 1 TO 2 DAYS. - Billing Disposition and Condition Condition: STABLE Disposition: Home - Attestation Statements Document Initiated by Ayan: Yes Documenting Scribe: Kingston Pierson Provider For Whom Ayan is Documenting (Include Credential): Dr. David Wan MD Scribe Attestation: IKingston scribed for Dr. David Wan MD on 02/25/19 at 0646. Scribe Documentation Reviewed: Yes Provider Attestation: The documentation as recorded by the Kingston nunn accurately reflects the service I personally performed and the decisions made by me, Dr. David Wan MD Status of Scribe Document: Viewed
[2019-02-22] MEDS ORDERED: Haloperidol INJ IV/IM* 5 MG/ML AMP IM ONE (21:03)
--- NOTE | 2019-02-22 23:23 | ED ---
Progress - Progress Note Progress Note: The patient is a 68 year who is presenting to the [facility] and is a sign out from Dr. Wan to Dr. Bowles. The patient was seen at the [facility] today for a fall and was pending CT reports of the Brain and C-spine. - Results/Orders Results/Orders: Brain CT as per radiologist reveals Patient motion without definite acute intracranial abnormality. ED Physician has reviewed this radiology report Cervical Spine CT as per radiologist reveals No acute fracture. ED Physician has reviewed this radiology report Course/Dx - Course Course Of Treatment: PT (68 year old female) was signed out to Dr. Mendez from Dr. Wan at shift change and was pending Ct reports of C-spine and Ct Brain. Both radiology reports were reviewed by the ED Phyisician and were negative. The patient will be discharged home with instructions on how to prevent falls in older adults. The dx will be Fall no injury. The patient is agreeable to this plan. - Diagnoses Provider Diagnoses: Fall with no injury Discharge - Sign-Out/Discharge Documenting (check all that apply): Patient Departure, Receiving Sign-Out Receiving patient FROM: David Wan Patient Received Moderate/Deep Sedation with Procedure: No - Discharge Plan Condition: Stable Disposition: HOME Patient Education Materials: Fall Prevention for Older Adults (ED) Referrals: Temi Vargas MD [Primary Care Provider] - Additional Instructions: RETURN TO THE EMERGENCY DEPARTMENT FOR CHANGING OR WORSENING SYMPTOMS. FOLLOW UP WITH YOUR PRIMARY CARE PROVIDER WITHIN 1 TO 2 DAYS. - Attestation Statements Document Initiated by Scribe: Yes Documenting Scribe: Adrien Quispe Provider For Whom Scribe is Documenting (Include Credential): Dr. John Bowles Scribe Attestation: Adrien Romo scribed for Dr. John Bowles on 02/22/19 at 2323. Status of Scribe Document: Ready
[2019-02-22 23:32] VITALS: BP 147/74
== END 2019-02-23 00:39 | disposition home or self-care (01) ==
LOC: ED 20:16
DX: Z71.1 Person with feared health complaint in whom no diagnosis is made (principal); W18.30XA Fall on same level, unspecified, initial encounter; Y92.129 Unspecified place in nursing home as the place of occurrence of the external cause; Z88.8 Allergy status to other drugs, medicaments and biological substances; Z88.2 Allergy status to sulfonamides; E78.00 Pure hypercholesterolemia, unspecified; J45.909 Unspecified asthma, uncomplicated; M81.0 Age-related osteoporosis without current pathological fracture; H91.91 Unspecified hearing loss, right ear; F03.90 Unspecified dementia, unspecified severity, without behavioral disturbance, psychotic disturbance, mood disturbance, and anxiety; G20 Parkinson's disease; F41.9 Anxiety disorder, unspecified; F32.9 Major depressive disorder, single episode, unspecified
CPT/HCPCS: 70450; 72125; 96374; 99283; J1630

== ENCOUNTER 2019-10-16 19:56 | Emergency (ER) | payer MEDICARE, BC ==
[2019-10-16] MEDS ORDERED: NS 0.9% 1000 ML** 1,000 ML IV ONE (19:59)
--- NOTE | 2019-10-16 20:11 | ED ---
Altered Mental Status - HPI Summary HPI Summary: Pt is a 69 y/o F presenting to the ED brought in by EMS for AMS. LEVEL 5 CAVEAT : Pts full hx and physical is limited d/t baseline dementia/mental status. She comes from [facility] where she was eating dinner and experienced an episode of unresponsiveness. They brought her back to her room and she eventually regained consciousness, but staff was concerned d/t slightly elevated BP and the pts skin being clammy. - History Of Current Complaint Chief Complaint: EDAltMentalStatus Stated Complaint: AMS PER EMS Time Seen by Provider: 10/16/19 20:00 Hx Obtained From: Family/Fashion Artist - brother, EMS Hx From Patient Unobtainable Due To: Dementia Onset/Duration: Resolved, Suddenly Timing: Intermittent, Lasting Minutes Severity Initially: Moderate Severity Currently: None Character: Responsiveness Aggravating Factor(s): Unknown Alleviating Factor(s): Unknown Associated Signs And Symptoms: Positive: Negative - Allergies/Home Medications Allergies/Adverse Reactions: Allergies Allergy/AdvReac Type Severity Reaction Status Date / Time MS Escitalopram Allergy unk Verified 12/15/15 14:58 [From Lexapro] MS Memantine [From Namenda] Allergy unk Verified 12/15/15 14:58 MS Rivastigmine [From Exelon] Allergy unk Verified 12/15/15 14:58 MS Sulfa Antibiotics Allergy unk Verified 12/15/15 14:58 [Sulfa Antibiotics] leaf mold Allergy Unknown Uncoded 12/15/15 14:58 Reaction Details PMH/Surg Hx/FS Hx/Imm Hx Previously Healthy: No - LEVEL 5 CAVEAT: Pts full hx and physical is limited d/ t baseline dementia Endocrine/Hematology History: Denies: Hx Anemia Cardiovascular History: Reports: Hx Hypercholesterolemia Respiratory History: Reports: Hx Asthma GI History: Reports: Other GI Disorders - colonic polyps Denies: Hx Jaundice History: Reports: Other Problems/Disorders - ureteral diverticulum Musculoskeletal History: Reports: Hx Osteoporosis, Other Musculoskeletal History - tremor Sensory History: Reports: Hx Glaucoma, Hx Deafness - Right ear, Other Sensory Impairments - episodic diplopia Denies: Hx Contacts or Glasses, Hx Hearing Aid Opthamlomology History: Reports: Hx Glaucoma, Other Sensory Impairments - episodic diplopia Denies: Hx Contacts or Glasses Neurological History: Reports: Hx Dementia - advanced early dementia, Other Neuro Impairments/Disorders - Parkinson's, Subdural hematoma Psychiatric History: Reports: Hx Anxiety, Hx Depression - Cancer History Hx Chemotherapy: No Hx Radiation Therapy: No - Surgical History Surgery Procedure, Year, and Place: 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 Positive: Other - slightly elevated BP per staff Positive: Other - "clammy" skin per staff Neurological: Other - dec. level of responsiveness All Other Systems Reviewed And Are Negative: No Physical Exam - Summary Physical Exam Summary: LEVEL 5 CAVEAT: Pts full hx and physical is limited d/t baseline dementia/ mental status. Appearance: Elderly woman in no apparent distress who doesnt respond verbally but makes eye contact with me Skin: Warm, dry, no obvious rash Eyes: sclera anicteric, no conjunctival pallor ENT: mucous membranes moist, pharynx appears normal Neck: Supple, nontender Respiratory: Clear to auscultation, no signs of respiratory distress Cardiovascular: Normal S1, S2. No murmurs. Normal distal pulses in tibial and radial bilaterally. Abdomen: Soft, nontender, normal active bowel sounds present Musculoskeletal: Normal, Strength/ROM Intact Neurological: Awake and alert, non-verbal. Psychiatric: deferred d/t baseline mental status Triage Information Reviewed: Yes Vital Signs Reviewed: Yes Procedures - Sedation Patient Received Moderate/Deep Sedation with Procedure: No Diagnostics - Laboratory Result Diagrams: 10/16/19 20:27 10/16/19 20:27 Lab Statement: Any lab studies that have been ordered have been reviewed, and results considered in the medical decision making process. - EKG 2009 Cardiac Rate: NL - 81bpm EKG Rhythm: Sinus Rhythm ST Segment: Normal Ectopy: None Summary of EKG Findings: EKG at 2009 shows NSR at 81bpm with an old inferior infarct, but P waves, QRS complex, and T waves are within normal limits, T waves and intervals are normal, no ischemic changes. This is a normal EKG. ED physician has reviewed and interpreted this EKG. Altered Mental Statu Course/Dx - Course Course Of Treatment: Pt is a 69 y/o F presenting to the ED brought in by EMS for AMS. LEVEL 5 CAVEAT: Pts full hx and physical is limited d/t baseline dementia/mental status. She comes from [facility] where she was eating dinner and experienced an episode of unresponsiveness. They brought her back to her room and she eventually regained consciousness, but staff was concerned d/t slightly elevated BP and the pts skin being clammy. On exam, pt is an elderly woman in no apparent distress who doesnt respond verbally but makes eye contact with me. She's awake and alert, but non-verbal. EKG at 2009 shows NSR at 81bpm with an old inferior infarct, but P waves, QRS complex, and T waves are within normal limits, T waves and intervals are normal, no ischemic changes. This is a normal EKG. ED physician has reviewed and interpreted this EKG. Pt will be sent home with dx of altered mental status. She is stable and agreeable with this plan. - Diagnoses Provider Diagnoses: AMS (altered mental status) Discharge ED - Sign-Out/Discharge Documenting (check all that apply): Patient Departure - Discharge Plan Condition: Good Disposition: HOME Patient Education Materials: Altered Mental Status (ED) Referrals: Temi Vargas MD [Primary Care Provider] - If Needed Additional Instructions: Mrs. Licea has not had any further spells after several hours of observation in the ED, and screening lab and EKG studies have been unremarkable. She can be discharged to [place] [facility] and observed further there. - Billing Disposition and Condition Condition: GOOD Disposition: Home - Attestation Statements Document Initiated by Ladyibe: Yes Documenting Scribe: Rosa Urrutia Provider For Whom Ayan is Documenting (Include Credential): David Wan MD. Scribe Attestation: Rosa Romo scribed for David Wan MD. on 10/17/19 at 0623. Scribe Documentation Reviewed: Yes Provider Attestation: The documentation as recorded by the ladyibe, Rosa Urrutia accurately reflects the service I personally performed and the decisions made by , David Wan MD. Status of Scribe Document: Viewed
[2019-10-16 20:33] LABS: ABS Basophils 0.1 10^3/ul (0-0.2); ABS Eosinophils 0.1 10^3/ul (0-0.6); ABS Lymphocytes 2.8 10^3/ul (1.0-4.8); ABS Monocytes 0.9 10^3/ul (0-0.8); Eosinophil % 0.6 %; Hematocrit 43 % (35-47); Hemoglobin 14.3 g/dL (12.0-16.0); Lymphocyte % 31.5 %; Mean Corpuscular HGB Conc 34 g/dL (31-36); Mean Corpuscular Hemoglobin 31 pg (27-31); Mean Corpuscular Volume 92 fL (80-97); Mean Platelet Volume 8.5 fL (7.4-10.4); Nucleated Red Blood Cells % 0.1; Platelet Count 341 10^3/uL (150-450); Red Blood Count 4.63 10^6 /uL (3.70-4.87); Red Cell Distribution Width 13 % (10-15); White Blood Count 8.7 10^3/uL (3.5-10.8)
[2019-10-16 20:50] LABS: Albumin 4.1 g/dL (3.2-5.2); Albumin/Globulin Ratio 1.3 (1-3); BUN/Creatinine Ratio 28.2 (8-20); C Reactive Protein 15.21 mg/L (<8.01); Calcium 10.8 mg/dL (8.6-10.3); EGFR African American 88.1 (>60); EGFR Non-African American 72.8 (>60); Globulin 3.1 g/dL (2-4); Potassium 4.5 mmol/L (3.5-5.0); Total Bilirubin 0.9 mg/dL (0.2-1.0); Total Protein 7.2 g/dL (6.4-8.9)
[2019-10-16 20:52] LABS: Troponin I 0.01 ng/mL (<0.03)
[2019-10-16 23:37] VITALS: BP 147/76
== END 2019-10-16 22:49 | disposition home or self-care (01) ==
LOC: ED 19:56
DX: R41.82 Altered mental status, unspecified (principal); F03.90 Unspecified dementia, unspecified severity, without behavioral disturbance, psychotic disturbance, mood disturbance, and anxiety; Z88.2 Allergy status to sulfonamides; Z88.8 Allergy status to other drugs, medicaments and biological substances
CPT/HCPCS: 36415; 80053; 83605; 84484; 85025; 86140; 93005; 96360; 96361; 99283

== ENCOUNTER 2020-11-09 01:38 | Inpatient (IN) ==
[2020-11-09] MEDS ORDERED: NS 0.9% 1000 ml BAG 1,000 ML IV.FLUID IV ONE (01:58)
[2020-11-09] MEDS ORDERED: Piperacillin/Tazobac ADVAN 3.375 GM in NS 0.9% 100 ml BAG 100 ML IVPB ONE (02:00)
[2020-11-09] MEDS ORDERED: Vancomycin 1,250 MG in NS 0.9% 250 ml 250 ML IVPB ONE (02:15)
[2020-11-09 02:22] LABS: Hematocrit 46 % (35-47); Hemoglobin 15.2 g/dL (12.0-16.0); Mean Corpuscular HGB Conc 33 g/dL (31-36); Mean Corpuscular Hemoglobin 30 pg (27-31); Mean Corpuscular Volume 91 fL (80-97); Mean Platelet Volume 9.7 fL (7.4-10.4); Platelet Count 330 10^3/uL (150-450); Red Blood Count 5.05 10^6 /uL (3.70-4.87); Red Cell Distribution Width 13 % (10-15)
[2020-11-09 02:24] LABS: ABS Basophils 0.1 10^3/ul (0-0.2); ABS Monocytes 1.6 10^3/ul (0-0.8); ABS Neutrophils 13.3 10^3/ul (1.5-7.7); Eosinophil % 0.1 %; Lymphocyte % 11.8 %
[2020-11-09 02:34] LABS: Activated Partial Thrombo Time 22.6 seconds (26.0-38.0); INR 1.13 (0.82-1.09)
[2020-11-09 02:41] LABS: ALT 106 U/L (7-52); Albumin 3.7 g/dL (3.2-5.2); Albumin/Globulin Ratio 0.8 (1-3); Alkaline Phosphatase 135 U/L (34-104); BUN/Creatinine Ratio 38.2 (8-20); Blood Urea Nitrogen 29 mg/dL (6-24); C Reactive Protein 141.03 mg/L (<8.01); CO2 Carbon Dioxide 26 mmol/L (22-32); Calcium 10.5 mg/dL (8.6-10.3); Chloride 115 mmol/L (101-111); EGFR African American 90.5 (>60); EGFR Non-African American 74.8 (>60); Globulin 4.4 g/dL (2-4); Glucose 173 mg/dL (70-100); Sodium 148 mmol/L (135-145); Total Protein 8.1 g/dL (6.4-8.9)
[2020-11-09 02:42] LABS: Troponin I 0.01 ng/mL (<0.03)
[2020-11-09 02:51] LABS: Anion Gap 7 mmol/L (2-11)
[2020-11-09] MEDS ORDERED: Ondansetron 4 mg VIAL 2 MG/ML 2 ml VIAL IV PRN (03:38)
[2020-11-09] MEDS ORDERED: Iohexol 300 (CONTRAST) 10 ML SDV IV ONE (03:53)
[2020-11-09 03:57] LABS: Potassium Redraw 3.9 mmol/L (3.5-5.0)
[2020-11-09] MEDS ORDERED: Albuterol 2.5mg/3 ml (0.083%) NEB.SOLN INH PRN (04:14)
[2020-11-09 04:26] LABS: Urine Appearance Cloudy; Urine Bilirubin Negative (Negative); Urine Blood 3+ (Negative); Urine Color Amber; Urine Glucose 1+(50 mg/dL) (Negative); Urine Ketones Negative (Negative); Urine Nitrite Negative (Negative); Urine Protein 2+(100 mg/dL) (Negative); Urine Specific Gravity 1.033 (1.010-1.030); Urine Urobilinogen Negative (Negative)
[2020-11-09 04:46] LABS: Urine Bacteria 1+ (Absent); Urine Red Blood Cell 3+(>10/hpf) (Absent); Urine Squamous Epithelial Cell Present (Absent); Urine White Blood Cell Trace(0-5/hpf) (Absent)
[2020-11-09] MEDS ORDERED: Heparin 5000 UNITS/ML 1 mL VIAL SUBCUT SCH (06:00)
[2020-11-09 06:42] LABS: ABS Lymphocytes 1.7 10^3/ul (1.0-4.8); ABS Neutrophils 9.4 10^3/ul (1.5-7.7); Eosinophil % 0.2 %; Hematocrit 35 % (35-47); Hemoglobin 11.1 g/dL (12.0-16.0); Lymphocyte % 13.9 %; Mean Corpuscular HGB Conc 32 g/dL (31-36); Mean Corpuscular Hemoglobin 30 pg (27-31); Mean Corpuscular Volume 94 fL (80-97); Mean Platelet Volume 9.3 fL (7.4-10.4); Nucleated Red Blood Cells % 0.1; Platelet Count 216 10^3/uL (150-450); Red Blood Count 3.72 10^6 /uL (3.70-4.87); Red Cell Distribution Width 13 % (10-15); White Blood Count 12.2 10^3/uL (3.5-10.8)
[2020-11-09 06:50] LABS: INR 1.29 (0.82-1.09)
[2020-11-09 06:59] LABS: Influenza A Molecular Negative (Negative); Influenza B Molecular Negative (Negative)
[2020-11-09] MEDS ORDERED: Iohexol 350 (CONTRAST) 500 ML MDV IV ONE (09:19)
[2020-11-09] MEDS ORDERED: cefTRIAXone 1 gm/50 mL NS BAG 1 GM/50 ML BAG IVPB SCH (10:00)
[2020-11-09] MEDS: Enoxaparin 60 MG/0.6 ML SYR SUBCUT SCH (10:21)
[2020-11-09] MEDS ORDERED: Azithromycin 500 mg/250 ml NS 500 MG/250 ML BAG IVPB SCH (11:00)
[2020-11-10] MEDS: Enoxaparin 60 MG/0.6 ML SYR SUBCUT SCH ×2 (00:22→11:32)
[2020-11-10] MEDS: NS 0.9% 1000 ml BAG 1,000 ML IV SCH ×2 (00:29→06:12)
[2020-11-10 05:34] LABS: BUN/Creatinine Ratio 27.4 (8-20); Calcium 9.5 mg/dL (8.6-10.3); EGFR African American 114.5 (>60); EGFR Non-African American 94.6 (>60); Potassium 3.6 mmol/L (3.5-5.0)
[2020-11-10] MEDS ORDERED: D5LR 1000 ml BAG 1,000 ML IV SCH (09:00)
[2020-11-10] MEDS ORDERED: CLONAZEPAM 0.25 MG PO SCH (09:15)
[2020-11-10] MEDS ORDERED: D5NS 0.9% 1000 ml BAG 1,000 ML IV SCH (10:00)
[2020-11-10] MEDS: Polyethylene Glycol 3350 17 GM PACKET PO SCH (11:32)
[2020-11-10] MEDS: Carbidopa/Levodop 25/100 MG TAB PO SCH (11:39)
[2020-11-10 15:24] LABS: BUN/Creatinine Ratio 29.5 (8-20); Calcium 9.8 mg/dL (8.6-10.3); EGFR African American 116.7 (>60); EGFR Non-African American 96.4 (>60); Potassium 3.5 mmol/L (3.5-5.0)
[2020-11-10] MEDS: D5W 1000 ml BAG 1,000 ML IV SCH (16:27)
[2020-11-10] MEDS ORDERED: Latanoprost 0.005% 2.5 ml BTL BOTH EYES SCH (18:00)
[2020-11-11] MEDS: D5W 1000 ml BAG 1,000 ML IV SCH (03:02)
[2020-11-11 06:34] LABS: ABS Eosinophils 0.2 10^3/ul (0-0.6); ABS Lymphocytes 1.6 10^3/ul (1.0-4.8); ABS Monocytes 0.9 10^3/ul (0-0.8); ABS Neutrophils 7.9 10^3/ul (1.5-7.7); Hematocrit 36 % (35-47); Hemoglobin 12.1 g/dL (12.0-16.0); Lymphocyte % 14.9 %; Mean Corpuscular HGB Conc 33 g/dL (31-36); Mean Corpuscular Hemoglobin 30 pg (27-31); Mean Corpuscular Volume 90 fL (80-97); Mean Platelet Volume 9.2 fL (7.4-10.4); Platelet Count 260 10^3/uL (150-450); Red Blood Count 4.02 10^6 /uL (3.70-4.87); Red Cell Distribution Width 13 % (10-15); White Blood Count 10.7 10^3/uL (3.5-10.8)
[2020-11-11 06:48] LABS: BUN/Creatinine Ratio 26.4 (8-20); C Reactive Protein 89.99 mg/L (<8.01); Calcium 8.6 mg/dL (8.6-10.3); EGFR African American 137.2 (>60); EGFR Non-African American 113.4 (>60); Potassium 3.1 mmol/L (3.5-5.0)
[2020-11-11] MEDS: Polyethylene Glycol 3350 17 GM PACKET PO SCH (08:09)
[2020-11-11] MEDS: Carbidopa/Levodop 25/100 MG TAB PO SCH (08:18)
[2020-11-11] MEDS: KCL 20 MEQ/100 ML IVPREMIX 20 MEQ/100 ML BAG IV SCH ×2 (09:01→12:02)
[2020-11-11 11:48] VITALS: BP 117/57
[2020-11-11] MEDS ORDERED: Potassium Chlor 20 meq TAB.ER PO ONE (14:44)
== END 2020-11-11 16:45 | DRG 175 ==
LOC: ED 01:38 → MED 18:35 → SSU 11-10 05:40
PROVIDERS: ADMIT Hospitalist; ATTEND Internal Medicine